=== PATIENT | male | born 1965 | race African-American/Black ===

== ENCOUNTER 2024-06-09 15:34 | Emergency (ER) | payer BC ==
[~2024-06-09] VITALS: Ht 193 cm; Wt 83.9 kg
[~2024-06-09 15:34] MED LIST: AMOX1TAB16 MT; ASPI-1406 PO; ATOR20TA PO; CLOP-31 PO; DOCU-138 MT; DORZ10DR32 EACHEYE; GABA-1180 PO; HYDR-4001 MT; HYDR-4009 PO; SULF1TAB48 MT
[2024-06-09 15:59] VITALS: O2SAT 99
[2024-06-09 17:16] VITALS: BP 127/78; PULSE 73; RESP 16; TEMP 98.2; O2SAT 100
== END 2024-06-09 19:30 | disposition home or self-care (01) ==
LOC: ER 15:34
DX: M79.605 Pain in left leg (principal); F10.90 Alcohol use, unspecified, uncomplicated; F12.90 Cannabis use, unspecified, uncomplicated; H40.9 Unspecified glaucoma; Z98.890 Other specified postprocedural states; Z79.02 Long term (current) use of antithrombotics/antiplatelets; Z79.82 Long term (current) use of aspirin; Z79.899 Other long term (current) drug therapy; Y90.9 Presence of alcohol in blood, level not specified
CPT/HCPCS: 99281